=== PATIENT | male | born 1950 | race Caucasian/White ===

== ENCOUNTER 2023-10-17 06:21 | Day surgery (SDC) | payer OTHER, SELFPAY ==
[2023-10-17 08:54] VITALS: BMI 25.8
[2023-10-17 08:55] VITALS: BMI 25.8
[2023-10-17 08:56] VITALS: BP 134/70
[2023-10-17 11:45] VITALS: BP 171/97
[2023-10-17 12:00] VITALS: BP 173/98
== END 2023-10-17 12:25 | disposition home or self-care (01) ==
LOC: SDS 06:21
PROVIDERS: ATTENDING PHYSICIAN Internal Medicine Gastroenterology
DX: D12.4 Benign neoplasm of descending colon (principal); D12.5 Benign neoplasm of sigmoid colon; D12.8 Benign neoplasm of rectum; K63.5 Polyp of colon; K64.9 Unspecified hemorrhoids
CPT/HCPCS: 45390; 45385; 45384; 88305